=== PATIENT | male | born 1980 | race Caucasian/White ===

== ENCOUNTER 2018-10-20 21:19 | Emergency (ER) | payer BC, MEDICAID ==
[~2018-10-20] VITALS: Ht 180.3 cm; Wt 70.3 kg
[~2018-10-20 21:19] MED LIST: HYDACE5 PO; HYDCOR2.5B TOP
[2018-10-20] MEDS ORDERED: Norco 5-325 Ta1 EACH PO (23:00)
[2018-10-20] MEDS ORDERED: CEPH500 PO (23:00)
[2018-10-20] MEDS ORDERED: ONDA4ODT MM (23:00)
== END 2018-10-20 23:17 | disposition home or self-care (01) ==
LOC: ER 21:19
DX: S61.112A Laceration without foreign body of left thumb with damage to nail, initial encounter (principal); W29.8XXA Contact with other powered hand tools and household machinery, initial encounter
CPT/HCPCS: 73140; 99283-25; A9270; A9270-GY